=== PATIENT | female | born 1965 | race Caucasian/White ===

== ENCOUNTER → 2018-05-08 10:03 | Day surgery (SDC) | END | disposition home or self-care (01) ==

== ENCOUNTER 2018-10-28 12:01 | Day surgery (SDC) | payer OTHER ==
[~2018-10-28] VITALS: Ht 154.9 cm; Wt 66.1 kg
[2018-10-28] VITALS (16 sets, daily range): BP systolic 88–116; BP diastolic 51–64; PULSE 71–91; RESP 14–20; Ht 154.9 cm; Wt 66.1 kg
[~2018-10-28 12:01] MED LIST: ALBU18HF INHALATION; CEFAZOLIN 1 GM INJ ONE; CEFAZOLIN 2 GM/50 ML (PMX) 50 ML IVPB SCH; DEXAMETHASONE 4 MG/ML 5 ML INJ ONE; NAPR-688 PO; ONDANSETRON 4 MG INJ ONE; SEVOFLURANE 15 MIN ONE
[2018-10-28] MEDS ORDERED: PROPOFOL 20 ML ONE (12:09)
[2018-10-28] MEDS ORDERED: FENTAnyl 50 MCG/ML VIAL ONE ×2 (12:09→15:56)
[2018-10-28] MEDS ORDERED: MIDAZOLAM 1 MG/ML 2 ML INJ ONE (12:09)
[2018-10-28] MEDS ORDERED: NEOSTIGMINE 3 MG/3 ML SYRINGE ONE (12:09)
[2018-10-28] MEDS ORDERED: ROCURONIUM 50 MG INJ ONE (12:09)
[2018-10-28] MEDS ORDERED: GLYCOPYRROLATE 0.4 MG INJ ONE (12:09)
[2018-10-28] MEDS ORDERED: LIDOCAINE 2% (SDV) 5 ML INJ ONE (12:09)
[2018-10-28] MEDS ORDERED: PRED20TA PO (13:01)
--- NOTE | 2018-10-28 13:13 | PREAC ---
Date/Time of Note Date/Time of Note DATE: 10/28/18 TIME: 13:06 Anesthesia Eval and Record Evaluation Time Pre-Procedure Interview DATE: 10/28/18 TIME: 13:06 Age 53 Sex female NPO: 8 hrs (Left Index ) Preoperative diagnosis Left Index Finger Contraction Planned procedure Left Index Finger Flexor Tenosynovictomy Past Medical History Past Medical History: Includes Cardio: Other Endo: Other Pulm: Asthma Neuro: Other Musculoskeletal: Other Renal: Other Hepatic: Other GI: Other Heme: Other Psych: Other Infection(s): Other Recreational drugs: Other : Other Surgery & Anesthesia Issues Aspiration risk Meds Anticoagulation: No Beta Marifer within 24 hr: No Reason Beta Marifer not given: Pt. not on B-Marifer Reported Medications Prednisone* (Prednisone*) 20 Mg Tab, 20 MG PO DAILY, TAB 10/28/18 Discontinued Reported Medications Albuterol Sulfate* (Ventolin HFA*) 18 Gm Hfa.aer.ad, 2 PUFF INHALATION Q4H, #1 INHALER 05/08/18 Naproxen* (Naproxen*) 500 Mg Tablet, 500 MG PO BID PRN for INFLAMMATION, TAB 05/08/18 Current Medications Cefazolin Sodium/ Dextrose 50 ml @ 100 mls/hr PRE-OP IVPB ; Start 10/28/18 at 06:00; Stop 10/28/18 at 18:00 Meds reviewed: Yes Allergies Coded Allergies: No Known Drug Allergy (Verified Allergy, Unknown, 05/08/18) Allergies Reviewed: Yes Labs/Studies Labs Reviewed: Reviewed by anesthesiologist test: N/A Studies: ECG Pre-procedure Exam Last vitals Vital Signs Date Temp Pulse Resp B/P (MAP) Pulse Ox O2 O2 Flow FiO2 Time Delivery Rate 10/28/18 98.4 71 16 114/56 97 Room Air 12:46 (75) Airway: Adequate mouth opening Mallampati: Mallampati II Teeth: Normal Lung: Abnormal Heart: Normal Anticipated Difficutly with IV: Anticipate Difficult IV Access ASA Physical Status ASA physical status: 2 Emergency: None Planned Anesthetic General/MAC: ETT Neuraxial: Other Nerve block: Other Planned Pain Management Parenteral pain med, Local by surgeon Pre-operative Attestations Prior to commencing anesthesia and surgery, the patient was re-evaluated, there was verification of: *The patient's identity *The results of appropriate recent lab work and preoperative vital signs *The above evaluation not changing prior to induction *Anesthetic plan, risk benefits, alternative and complications discussed with patient/family; questions answered; patient/family understands, accepts and wishes to proceed. RAYSHAWN GARCIA MD Oct 28, 2018 13:13
--- NOTE | 2018-10-28 13:18 | HPN ---
Date/Time of Note Date/Time of Note DATE: 10/28/18 TIME: 13:17 Interval H&P Admission Note There is increased swelling in the palmar aspect of the extending to the thenar eminence and wrist crease. She is also having numbness in the fingers. I recommend we include left carpal tunnel release to the surgery to decompress the median nerve and perform a flexor tenosynovectomy in the carpal tunnel as well. She understands risks of infection, bleeding, neurovascular injury, stiffness, swelling, and other anesthesia related risks. KAYY PADILLA MD Oct 28, 2018 13:18
[2018-10-28] MEDS ORDERED: HYDROCORTISONE 100 MG INJ ONE (13:23)
[2018-10-28] MEDS ORDERED: BUPIVACAINE 0.25% (MPF) 30 ML INJ ONE (14:03)
[2018-10-28] MEDS ORDERED: BUPIVACAINE 0.25% (MPF) 30 ML INJ INJ ONE (14:30)
[2018-10-28] MEDS ORDERED: BACITRACIN/POLYMYXIN 28.35 GM OINT TOP ONE (15:16)
--- NOTE | 2018-10-28 15:37 | SIPON ---
Date/Time of Note Date/Time of Note DATE: 10/28/18 TIME: 15:32 Operative Report Preoperative Diagnosis Left index finger flexor tenosynovitis Left carpal tunnel syndrome Postoperative Diagnosis 1. Left index finger flexor tenosynovitis 2. Left Carpal Tunnel syndrome Operation/Procedure Performed Left index finger flexor tendon synovectomy and left wrist flexor tenosynovectomy Surgeon Layla Holley assistant press operator offset none Anesthesia: general Estimated blood loss: 0 - 10 ml's Transfusion Required none Specimen Flexor tenosynovium Grafts/Implants none Complications none KAYY HOLLEY MD Oct 28, 2018 15:37
--- NOTE | 2018-10-28 15:40 | PAC ---
Date/Time of Note Date/Time of Note DATE: 10/28/18 TIME: 15:39 Post-Anesthesia Notes Post-Anesthesia Note Last documented vital signs Vital Signs Date Temp Pulse Resp B/P (MAP) Pulse Ox O2 O2 Flow FiO2 Time Delivery Rate 10/28/18 98.2 15:38 10/28/18 71 16 114/56 97 Room Air 12:46 (75) Activity: WNL Respiratory function: WNL Cardiovascular function: WNL Mental status: Baseline Pain reasonably controlled: Yes Hydration appropriate: Yes Nausea/Vomiting absent: No RAYSHAWN GARCIA MD Oct 28, 2018 15:40
--- NOTE | 2018-10-28 15:50 | OPR ---
Date/Time of Note Date/Time of Note DATE: 10/28/18 TIME: 15:37 Operative Report Procedure Date: Oct 28, 2018 Preoperative Diagnosis 1. Left index finger flexor tenosynovitis 2. Left Carpal Tunnel syndrome Postoperative Diagnosis 1. Left index finger flexor tendon synovitis 2. Left Carpal Tunnel syndrome Operation/Procedure Performed 1. Left index finger flexor tenosynovectomy 2. Left wrist flexor tenosynovectomy Surgeon see signature line Carbonation Tester None Anesthesia Type: general Tourniquet Time: 66 minutes Estimated Blood Loss: 0 - 10 ml's Transfusion none Specimen Flexor tenosynovium Grafts/Implants none Complications None none Pt Condition Post Procedure: stable Indications Rachel is a 53-year-old [id number] female who presented to clinic with left index finger swelling since last March. There is no obvious trauma. Patient has been treated with oral antibiotics oral prednisone without improvement. She has had an MRI demonstrating marketed tenosynovitis of the index finger flexor tendon sheath along the carpal tunnel into the middle phalanx. She has had inflammatory workup which was all negative. She endorses swelling and decreased motion in the index finger. She endorses numbness at nighttime. We discussed doing a flexor tendon synovectomy. On the day of surgery she was also to have had a worsening swelling extending into the palm of the hand, and ongoing numbness in the hand. Therefore we discussed also incorporating a flexor tenosynovectomy at the wrist to decompress the carpal tu nnel. She understood risks of surgery which include but are not limited to infection pain bleeding neurovascular injury, stiffness, chance of recurrence, recurrence, and other anesthesia related risks. She elected to proceed. Procedure Description Patient was identified in preoperative holding area. Upper extremity was marked. She was taken to the operating room and placed supine. 2g Ancef was administered. General anesthesia was induced. A nonsterile tourniquet was applied to the arm. The arm was then prepped and draped in usual sterile fashion. Timeout was performed indicating correct patient site and procedure. Arm was exsanguinated Esmarch and tourniquet was elevated to 250 minutes mercury. I first began by marking out a Jonas incision over the volar aspect of the index finger over the proximal phalanx and over the distal palmar. Skin was incised sharply. The skin flaps were elevated bluntly. Skin flaps were retracted using 4-0 nylon suture. There was marked tenosynovitis encountered. Incision had to be extended both proximally and distally to the level of the DIP crease and to the mid palm. The pulleys were distended. The radial and ulnar digital neurovascular bundles were isolated and carefully protected throughout the case. I slowly began debriding the tenosynovium. This was significant tenosynovitis and was ballooning around the pulleys. A radical tenosynovectomy was performed for both the FDP and FDS tendons. The pulleys were attenuated but intact including the A1, A2, and A4. The flexor tendons were also intact. Tissue was sent for pathology and for aerobic, anaerobic, and fungal cultures to evaluate for possible TB. Next attention was turned to the carpal tunnel release. A longitudinal incision was established in the mid palmar aspect of the hand in line with the fourth ray. The skin was incised sharply with scalpel. The palmar fascia was divided in line with the skin incision. The transverse carpal ligament was then released in proximal distal fashion. Distally, the fat pad was visualized. Proximally blunt tenotomy scissors was passed above and below the transverse carpal ligament and complete release was performed under direct visualization. The median nerve was noted to be intact without significant flattening. I did not encounter as much tenosynovitis in the carpal tunnel as it did in index finger. The tourniquet was then released. There was moderate amount of bleeding noted as expected. Hemostasis was achieved with bipolar cautery. The skin was closed with interrupted 4-0 nylon suture. She was placed in a well-padded dressing. There is brisk capillary refill and index finger and all sponge and instrument counts were correct and the case. She was extubated and taken to PACU stable condition. Plan: We will follow up on the culture and pathology results KAYY PADILLA MD Oct 28, 2018 15:49
[2018-10-28] MEDS ORDERED: HYDROmorphONE 0.5 MG/0.5 ML SYG IV STA (15:54)
[2018-10-28] MEDS ORDERED: HYDROmorphONE 0.5 MG/0.5 ML SYG ONE (15:56)
[2018-10-28] MEDS ORDERED: FENTAnyl 50 MCG/ML VIAL IV ONE (16:00)
--- NOTE | 2018-10-30 14:33 | HP ---
Date/Time of Note Date/Time of Note DATE: 10/30/18 TIME: 14:27 Assessment/Plan VTE Prophylaxis SCD contraindicated: low risk/ambulating Pharmacological prophylaxis: NA/contraindicated Pharm contraindication: low risk/ambulating Lines/Catheters IV Catheter Type (from Nrsg): Peripheral IV Assessment/Plan Assessment/Plan Right index finger flexor tenosynovitis, right carpal tunnel syndrome Plan for right index finger flexor tenosynovectomy, and right carpal tunnel release. Informed consent obtained. SHe understands risks which include but are not limited to infection, pain, neurovascular injury, stiffness, recurrence, swelling, and other anesthesia related risks. She elects to proceed. HPI/ROS Admit Date/Time Admit Date/Time October 28, 2018 Hx of Present Illness Patient is a 53 year old female, healthy, who presented with right index finger swelling going on since last March. She has had antibiotics, steroids, with no relief. She has an MRI demonstrating significant flexor tenosynovitis. We have discussed surgery. She endorses swelling that is worse in the index finger, and numbness and tingling in the hand. ROS Negative except for noted above. Constitutional: no complaints Eyes: no complaints ENT: no complaints Respiratory: no complaints Cardiovascular: no complaints Gastrointestinal: no complaints Genitourinary: no complaints Musculoskeletal: swelling Skin: no complaints Neurologic: no complaints Lymphatic: no complaints Psychological: no complaints Immunologic: no complaints PMH/Family/Social Past Medical History Medical History: no pertinent history Coded Allergies: No Known Drug Allergy (Verified Allergy, Unknown, 05/08/18) Past Surgical History Past Surgical Hx: no surgical history Family History Significant Family History: no pertinent family hx Social History homemaker Alcohol Use: none Smoking Status: Never smoker Drug Use: none Exam/Review of Systems Vital Signs Vitals Vital Signs Date Temp Pulse Resp B/P (MAP) Pulse Ox O2 O2 Flow FiO2 Time Delivery Rate 10/28/18 97.8 81 16 112/54 95 16:35 (73) 10/28/18 Room Air 16:27 10/28/18 2.0 15:57 Exam Exam RIght index finger with significant swelling extending from the middle phalanx to the palm of the hand. There is crepitus and bogginess to palpation of the flexor tendon sheath. The thenar eminence is also swollen. Positive tinel's over the carpal tunnel. Sensation intact to light touch in all fingertips. Constitutional: alert, oriented Psych: no complaints Head: normocephalic Eyes: nl conjunctiva Respiratory: normal air movement Cardiovascular: nl pulses KAYY PADILLA MD Oct 30, 2018 14:33
== END 2018-10-28 17:15 | disposition home or self-care (01) ==
LOC: SDS 12:01
PROVIDERS: ATTEND Orthopaedic Surgery
DX: G56.02 Carpal tunnel syndrome, left upper limb (principal); M65.842 Other synovitis and tenosynovitis, left hand; J45.909 Unspecified asthma, uncomplicated
CPT/HCPCS: 26145; 64721; 71045; 87070; 87075; 87116; 88304; 93005; J1170; J1720; J2250; J2710; J3010; Z7610; 84703; J0690; J1100; J2405